=== PATIENT | male | born 1945 ===

== ENCOUNTER → 2021-09-12 09:55 | Outpatient (CLI) | payer MEDICARE, SELFPAY ==
--- NOTE | ~2021-09-12 | US_ITS ---
EXAMINATION: US thyroid DATE: 09/12/2021 10:12 INDICATION: Thyroid nodule. TECHNIQUE: Multiple ultrasound images of the thyroid were obtained. COMPARISON: None. FINDINGS: The right thyroid lobe measures 3.0 x 0.8 x 1.1 cm. The left thyroid lobe measures 3.3 x 0.9 x 1.2 c m. In the right thyroid lobe, there is a 3 mm nodule. In the left thyroid lobe, there is a 4 mm nodu le. IMPRESSION: 1. Small thyroid nodules, likely not clinically significant. No follow-up is needed. Reviewed, dictated and finalized at location B. IMPRESSION: 1. Small thyroid nodules, likely not clinically significant. No follow-up is ne eded.
== END ==
DX: E03.9 Hypothyroidism, unspecified (principal); E04.2 Nontoxic multinodular goiter
CPT/HCPCS: 76536